=== PATIENT | female | born 1955 | race Caucasian/White ===

== ENCOUNTER 2017-12-18 10:20 | Observation (INO) ==
--- NOTE | 2017-12-18 10:45 | Emergency Department Note ---
Disposition Clinical Impression: Hypokalemia, Hyperthyroidism Disposition: Admitted As Inpatient Condition: Fair General Adult HPI - General Chief complaint: ED Neuro Symptoms/Deficit Stated complaint: Left arm tingling Time Seen by Provider: 12/18/17 10:28 Source: patient Nursing Notes Reviewed: Yes Vital Signs Reviewed: Yes - History of Present Illness HPI Narrative: 62-year-old female presents to the emergency department after 2 day history of numbness and tingling in the left arm. Patient diagnosed with hyperthyroidism one year ago. Patient has not been taking any beta blockers or PTU. Patient takes lisinopril hydrochlorothiazide occasionally for hypertension. Patient denies any slurred speech, fevers, but does report some chest pain over the last couple days. Pain Scale: 6 - Related Data Home Medications Medication Instructions Recorded Confirmed Lisinopril-HCTZ 10-12.5 [Prinzide 1 each PO DAILY 12/18/17 12/18/17 10-12.5] Naproxen Sodium [Aleve] 220 mg PO DAILY 12/18/17 12/18/17 Allergies Allergy/AdvReac Type Severity Reaction Status Date / Time No Known Allergies Allergy Verified 08/17/16 11:12 All systems ED: reviewed and negative except as stated. Review of Systems: As Per HPI Constitutional: Denies: fever Cardiovascular: Reports: chest pain, palpitations Respiratory: Denies: cough, dyspnea Gastrointestinal: Denies: abdominal pain, nausea, vomiting Genitourinary: Denies: urgency, dysuria, frequency Musculoskeletal: Reports: back pain Neurological: Reports: numbness, paresthesias Psychiatric: Reports: anxiety Past Medical History - Past Medical History Medical history: Reports: hypertension Psychiatric history: Reports: anxiety, depression - Social History Smoking Status: Current every day smoker Smokeless Tobacco Status: No Alcohol use: Reports: none Drug use: Reports: none Physical Exam - General General appearance: alert, in no apparent distress, other (Thin-appearing 62- year-old female) - Head Head exam: atraumatic, normocephalic - Eye Eye exam: Present: EOMI. Absent: scleral icterus, conjunctival injection - ENT ENT exam: normal oropharynx, mucous membranes moist - Neck Neck exam: Present: trachea midline. Absent: tenderness - Chest Chest inspection: Present: normal inspection, symmetric chest wall rise - Respiratory Respiratory exam: Present: normal lung sounds bilaterally. Absent: respiratory distress, accessory muscle use - Cardiovascular Cardiovascular exam: Present: regular rate, normal rhythm, normal heart sounds - Abdominal Exam Abdominal exam: Present: soft, Non-Tender. Absent: distention, guarding, rebound - Back Exam Back exam: Present: normal inspection, full ROM. Absent: CVA tenderness (R), CVA tenderness (L) - Neurological Exam Neurological exam: Present: alert, oriented X3, CN II-XII intact - Psychiatric Psychiatric exam: Present: normal affect, normal mood - Skin Skin exam: Present: warm, dry, intact Course Vital Signs Temperature 97.8 F 12/18/17 10:25 Pulse Rate 75 12/18/17 10:25 Respiratory Rate 16 12/18/17 10:25 Blood Pressure 183/100 12/18/17 10:25 O2 Sat by Pulse Oximetry 99 12/18/17 10:25 Temperature 98.0 F 12/18/17 18:43 Pulse Rate 63 12/18/17 18:43 Respiratory Rate 14 12/18/17 18:43 Blood Pressure 168/98 12/18/17 18:43 O2 Sat by Pulse Oximetry 98 12/18/17 18:43 Oxygen Delivery Oxygen Delivery Room Air Medical Decision Making - MDM Narrative Medical decision making narrative: 8-year-old female presents emergency Department with numbness and tingling in the left upper extremity in the setting of history of hyperthyroidism. At this time, we will obtain a head CT. It did not reveal any evidence of intracranial abnormality. (Stroke, being that the symptoms of been there for 48 hours, should have seen some ischemia. Chest x-ray did not reveal any acute cardiopulmonary process. EKG was normal. Troponin was negative. Patient was severely hypokalemic with a potassium of 2.5. Patient was given 40 mg of potassium IV as well as 40 mg of potassium orally. TSH is 0.321 here which is low. Patient admitted to the hospitalist for further evaluation of her hyperthyroidism as well as hypokalemia. We did obtain a magnesium which was within normal limits. Discussed the plan with patient at bedside and she agreed with admission. Patient hemodynamically stable and not in any acute distress at time of admission. We held off on administering any beta blockers or PTU as patient was not clinically in thyroid storm. Chest X-Ray 12/18/17 10:41 IMPRESSION: No acute cardiopulmonary process identified. D/ / Jim Dudley MD / Jim Dudley MD Interpreting Provider: Jim Dudley MD Head CT 12/18/17 11:02 IMPRESSION: Stable appearance of the brain with no acute intracranial abnormality. D/ / Aiden Dewitt MD / Aiden Dewitt MD Interpreting Provider: Aiden Dewitt MD Vital Signs Temperature 97.8 F 12/18/17 10:25 Pulse Rate 75 12/18/17 10:25 Respiratory Rate 16 12/18/17 10:25 Blood Pressure 183/100 12/18/17 10:25 O2 Sat by Pulse Oximetry 99 12/18/17 10:25 Temperature 98.0 F 12/18/17 18:43 Pulse Rate 63 12/18/17 18:43 Respiratory Rate 14 12/18/17 18:43 Blood Pressure 168/98 12/18/17 18:43 O2 Sat by Pulse Oximetry 98 12/18/17 18:43 Oxygen Delivery Oxygen Delivery Room Air - Lab Data Result diagrams: 12/18/17 16:23 12/18/17 16:23 Lab Results 12/18/17 12/18/17 12/18/17 Range/Units 10:58 10:58 10:58 WBC 9.4 (4.3-11.1) K/mcL RBC 4.62 (3.82-4.97) M/mcL Hgb 13.5 (11.5-15.4) g/dL Hct 38.8 (35.3-44.9) % MCV 84.0 (83.0-100.0) fL MCH 29.2 (28.0-33.3) pg MCHC 34.8 (31.6-35.5) g/dL RDW 12.7 (11.5-14.5) % Plt Count 293 (140-400) K/mcL MPV 9.2 L (9.4-12.4) fL Immature Gran % 0.0 (0-4) % Seg Neutrophils % 57.1 % Lymphocytes % 37.3 % Monocytes % 4.6 % Eosinophils % 0.4 % Basophils % 0.6 % Neutrophils # 5.4 (1.6-8.9) K/mcL Lymphocytes # 3.5 (0.6-4.6) K/mcL Monocytes # 0.4 (0.0-1.3) K/mcL Eosinophils # 0.0 (0.0-0.6) K/mcL Basophils # 0.1 (0.0-0.2) K/mcL D-Dimer < 215 (0-500) ng/mLFEU Sodium 140 (136-145) mEq/L Potassium 2.5 L* (3.5-5.1) mEq/L Chloride 106 (98-107) mEq/L Carbon Dioxide 27 (23-29) mEq/L BUN 21 (8-23) mg/dL Creatinine 0.85 (0.60-1.20) mg/dL Est GFR ( Amer) > 60 (> 60) Est GFR (Non-Af Amer) > 60 (> 60) BUN/Creatinine Ratio 25 (6-26) Glucose 116 H (70-105) mg/dL Calculated Osmolality 294 (280-300) Calcium 9.4 (8.6-10.3) mg/dL Magnesium 2.0 (1.6-2.6) mg/dL Troponin I < 0.03 (< 0.04) ng/mL B-Natriuretic Peptide (Less than 100) pg/mL TSH 0.281 L (0.340-5.600) mcIU/mL Urine Color (Yellow) Urine Clarity (Clear) Urine pH (5.0-8.0) pH Units Ur Specific [place] (1.010-1.025) Urine Protein (Neg-Trace) mg/dL Urine Glucose (UA) (Normal) mg/dL Urine Ketones (Negative) mg/dL Urine Blood (Negative) Urine Nitrite (Negative) Urine Bilirubin (Negative) Urine Urobilinogen (Normal) mg/dL Ur Leukocyte Esterase (Negative) Ur Culture Indicated? (NO) 12/18/17 12/18/17 Range/Units 10:58 11:17 WBC (4.3-11.1) K/mcL RBC (3.82-4.97) M/mcL Hgb (11.5-15.4) g/dL Hct (35.3-44.9) % MCV (83.0-100.0) fL MCH (28.0-33.3) pg MCHC (31.6-35.5) g/dL RDW (11.5-14.5) % Plt Count (140-400) K/mcL MPV (9.4-12.4) fL Immature Gran % (0-4) % Seg Neutrophils % % Lymphocytes % % Monocytes % % Eosinophils % % Basophils % % Neutrophils # (1.6-8.9) K/mcL Lymphocytes # (0.6-4.6) K/mcL Monocytes # (0.0-1.3) K/mcL Eosinophils # (0.0-0.6) K/mcL Basophils # (0.0-0.2) K/mcL D-Dimer (0-500) ng/mLFEU Sodium (136-145) mEq/L Potassium (3.5-5.1) mEq/L Chloride (98-107) mEq/L Carbon Dioxide (23-29) mEq/L BUN (8-23) mg/dL Creatinine (0.60-1.20) mg/dL Est GFR ( Amer) (> 60) Est GFR (Non-Af Amer) (> 60) BUN/Creatinine Ratio (6-26) Glucose (70-105) mg/dL Calculated Osmolality (280-300) Calcium (8.6-10.3) mg/dL Magnesium (1.6-2.6) mg/dL Troponin I (< 0.04) ng/mL B-Natriuretic Peptide 24 (Less than 100) pg/mL TSH (0.340-5.600) mcIU/mL Urine Color Yellow (Yellow) Urine Clarity Clear (Clear) Urine pH 6.5 (5.0-8.0) pH Units Ur Specific [place] 1.020 (1.010-1.025) Urine Protein Negative (Neg-Trace) mg/dL Urine Glucose (UA) Normal (Normal) mg/dL Urine Ketones Negative (Negative) mg/dL Urine Blood Negative (Negative) Urine Nitrite Negative (Negative) Urine Bilirubin Negative (Negative) Urine Urobilinogen Normal (Normal) mg/dL Ur Leukocyte Esterase Negative (Negative) Ur Culture Indicated? NO (NO) Attestation Statement - Attestation Attestation: I, Brandon Bardales DO, examined this patient [id number] and my medical decision-making was reviewed with Dr. Dangelo Johnson, Resident Physician. I agree with the documented findings, disposition and treatment plan as described except to the extent set forth below. Please see my progress notes for details.
[2017-12-18 11:18] LABS: Basophils # 0.1 K/mcL (0.0-0.2); Basophils % 0.6 %; Eosinophils % 0.4 %; Hematocrit 38.8 % (35.3-44.9); Hemoglobin 13.5 g/dL (11.5-15.4); Lymphocytes # 3.5 K/mcL (0.6-4.6); Lymphocytes % 37.3 %; Mean Corpuscular HGB Conc 34.8 g/dL (31.6-35.5); Mean Corpuscular Hemoglobin 29.2 pg (28.0-33.3); Mean Platelet Volume 9.2 fL (9.4-12.4); Monocytes # 0.4 K/mcL (0.0-1.3); Monocytes % 4.6 %; Neutrophils # 5.4 K/mcL (1.6-8.9); Platelet Count 293 K/mcL (140-400); Red Blood Count 4.62 M/mcL (3.82-4.97); Red Cell Distribution Width 12.7 % (11.5-14.5); Segmented Neutrophils % 57.1 %
[2017-12-18 11:40] LABS: Bilirubin,Urine Negative (Negative); Blood,Urine Negative (Negative); Clarity,Urine Clear (Clear); Color,Urine Yellow (Yellow); Glucose,Urine (UA) Normal (Normal); Ketones,Urine Negative (Negative); Leukocyte Esterase,Urine Negative (Negative); Nitrite,Urine Negative (Negative); PH,Urine 6.5 pH Units (5.0-8.0); Protein,Urine Negative (Neg-Trace); Urobilinogen,Urine Normal (Normal)
[2017-12-18 11:48] LABS: Troponin I < 0.03 ng/mL (< 0.04)
[2017-12-18 11:50] LABS: BUN/Creatinine Ratio 25 (6-26); Blood Urea Nitrogen 21 mg/dL (8-23); Calcium 9.4 mg/dL (8.6-10.3); Carbon Dioxide 27 mEq/L (23-29); Chloride 106 mEq/L (98-107); Glucose 116 mg/dL (70-105); Osmolality,Calculated 294 (280-300); Potassium 2.5 mEq/L (3.5-5.1); Sodium 140 mEq/L (136-145); Thyroid Stimulating Hormone 0.281 mcIU/mL (0.340-5.600); eGFR For African Americans > 60 (> 60); eGFR For Non-African Americans > 60 (> 60)
--- NOTE | 2017-12-18 12:14 | Emergency Department Note ---
Disposition Clinical Impression: Hypokalemia, Hyperthyroidism Disposition: Admitted As Inpatient Condition: Fair Time of Disposition: 17:53 General Adult HPI - General Chief complaint: ED Neuro Symptoms/Deficit Stated complaint: Left arm tingling Time Seen by Provider: 12/18/17 10:28 Source: patient - History of Present Illness Pain Scale: 6 - Related Data Home Medications Medication Instructions Recorded Confirmed Lisinopril-HCTZ 10-12.5 [Prinzide 1 each PO DAILY 12/18/17 12/18/17 10-12.5] Naproxen Sodium [Aleve] 220 mg PO DAILY 12/18/17 12/18/17 Allergies Allergy/AdvReac Type Severity Reaction Status Date / Time No Known Allergies Allergy Verified 08/17/16 11:12 Past Medical History - Past Medical History Medical history: Reports: hypertension Psychiatric history: Reports: anxiety, depression - Social History Smoking Status: Current every day smoker Smokeless Tobacco Status: No Alcohol use: Reports: none Drug use: Reports: none Physical Exam - General General appearance: alert, in no apparent distress Course Vital Signs Temperature 97.8 F 12/18/17 10:25 Pulse Rate 75 12/18/17 10:25 Respiratory Rate 16 12/18/17 10:25 Blood Pressure 183/100 12/18/17 10:25 O2 Sat by Pulse Oximetry 99 12/18/17 10:25 Temperature 98.2 F 12/18/17 14:26 Pulse Rate 56 12/18/17 14:26 Respiratory Rate 15 12/18/17 14:26 Blood Pressure 131/85 12/18/17 14:26 O2 Sat by Pulse Oximetry 97 12/18/17 14:26 Oxygen Delivery Oxygen Delivery Room Air Medical Decision Making - Lab Data Result diagrams: 12/18/17 16:23 12/18/17 10:58 Lab Results 12/18/17 12/18/17 12/18/17 Range/Units 10:58 10:58 10:58 WBC 9.4 (4.3-11.1) K/mcL RBC 4.62 (3.82-4.97) M/mcL Hgb 13.5 (11.5-15.4) g/dL Hct 38.8 (35.3-44.9) % MCV 84.0 (83.0-100.0) fL MCH 29.2 (28.0-33.3) pg MCHC 34.8 (31.6-35.5) g/dL RDW 12.7 (11.5-14.5) % Plt Count 293 (140-400) K/mcL MPV 9.2 L (9.4-12.4) fL Immature Gran % 0.0 (0-4) % Seg Neutrophils % 57.1 % Lymphocytes % 37.3 % Monocytes % 4.6 % Eosinophils % 0.4 % Basophils % 0.6 % Neutrophils # 5.4 (1.6-8.9) K/mcL Lymphocytes # 3.5 (0.6-4.6) K/mcL Monocytes # 0.4 (0.0-1.3) K/mcL Eosinophils # 0.0 (0.0-0.6) K/mcL Basophils # 0.1 (0.0-0.2) K/mcL D-Dimer < 215 (0-500) ng/mLFEU Sodium 140 (136-145) mEq/L Potassium 2.5 L* (3.5-5.1) mEq/L Chloride 106 (98-107) mEq/L Carbon Dioxide 27 (23-29) mEq/L BUN 21 (8-23) mg/dL Creatinine 0.85 (0.60-1.20) mg/dL Est GFR ( Amer) > 60 (> 60) Est GFR (Non-Af Amer) > 60 (> 60) BUN/Creatinine Ratio 25 (6-26) Glucose 116 H (70-105) mg/dL Calculated Osmolality 294 (280-300) Calcium 9.4 (8.6-10.3) mg/dL Magnesium 2.0 (1.6-2.6) mg/dL Troponin I < 0.03 (< 0.04) ng/mL B-Natriuretic Peptide (Less than 100) pg/mL TSH 0.281 L (0.340-5.600) mcIU/mL Urine Color (Yellow) Urine Clarity (Clear) Urine pH (5.0-8.0) pH Units Ur Specific [place] (1.010-1.025) Urine Protein (Neg-Trace) mg/dL Urine Glucose (UA) (Normal) mg/dL Urine Ketones (Negative) mg/dL Urine Blood (Negative) Urine Nitrite (Negative) Urine Bilirubin (Negative) Urine Urobilinogen (Normal) mg/dL Ur Leukocyte Esterase (Negative) Ur Culture Indicated? (NO) 12/18/17 12/18/17 Range/Units 10:58 11:17 WBC (4.3-11.1) K/mcL RBC (3.82-4.97) M/mcL Hgb (11.5-15.4) g/dL Hct (35.3-44.9) % MCV (83.0-100.0) fL MCH (28.0-33.3) pg MCHC (31.6-35.5) g/dL RDW (11.5-14.5) % Plt Count (140-400) K/mcL MPV (9.4-12.4) fL Immature Gran % (0-4) % Seg Neutrophils % % Lymphocytes % % Monocytes % % Eosinophils % % Basophils % % Neutrophils # (1.6-8.9) K/mcL Lymphocytes # (0.6-4.6) K/mcL Monocytes # (0.0-1.3) K/mcL Eosinophils # (0.0-0.6) K/mcL Basophils # (0.0-0.2) K/mcL D-Dimer (0-500) ng/mLFEU Sodium (136-145) mEq/L Potassium (3.5-5.1) mEq/L Chloride (98-107) mEq/L Carbon Dioxide (23-29) mEq/L BUN (8-23) mg/dL Creatinine (0.60-1.20) mg/dL Est GFR ( Amer) (> 60) Est GFR (Non-Af Amer) (> 60) BUN/Creatinine Ratio (6-26) Glucose (70-105) mg/dL Calculated Osmolality (280-300) Calcium (8.6-10.3) mg/dL Magnesium (1.6-2.6) mg/dL Troponin I (< 0.04) ng/mL B-Natriuretic Peptide 24 (Less than 100) pg/mL TSH (0.340-5.600) mcIU/mL Urine Color Yellow (Yellow) Urine Clarity Clear (Clear) Urine pH 6.5 (5.0-8.0) pH Units Ur Specific [place] 1.020 (1.010-1.025) Urine Protein Negative (Neg-Trace) mg/dL Urine Glucose (UA) Normal (Normal) mg/dL Urine Ketones Negative (Negative) mg/dL Urine Blood Negative (Negative) Urine Nitrite Negative (Negative) Urine Bilirubin Negative (Negative) Urine Urobilinogen Normal (Normal) mg/dL Ur Leukocyte Esterase Negative (Negative) Ur Culture Indicated? NO (NO) Attestation Statement - Attestation Attestation: I, Brandon Bardales DO, examined this patient [id number] and my medical decision-making was reviewed with Dr. Dangelo Johnson, Resident Physician. I agree with the documented findings, disposition and treatment plan as described except to the extent set forth below. Please see my progress notes for details. 62-year-old female presents to the emergency room with complaint of palpitations , intermittent chest tightness, flushing feeling, headache, left arm tingliness it has been going on for 2 days. Patient has had this happen multiple times in the past. Patient says that she has been under a great deal of stress considering her son had fallen several times it is chronically disabled. Patient does have a history of thyroid related diseases required medications to help with symptomatic control. Vital signs on presentation were stable. Patient is alert she is oriented she speaks in full sentences. She is thin. Head is atraumatic pupils are equal round reactive extraocular muscles are intact. Oropharynx is patent trachea is midline. There is no signs of stridor or trismus. No meningeal symptoms are noted at this time. Lungs are clear to auscultation bilaterally in all 4 holder. Heart is regular. Abdomen is soft nontender nondistended no guarding no rigidity and no peritoneal symptoms. Patient moves all 4 of her extremities with no signs of ataxia or abnormality. A full neurologic evaluation was completed showing no acute signs of cerebellar dysfunction or issue. NIH stroke scale is 0. Patient does have some slight subjective weakness and flexion of the left arm at the elbow. There is no other signs of neurologic deficit or issue. Nerve sensation appears to be intact in the upper and lower extremities. Patient has been able to elicit emergency room without any issue. Patient will have CT imaging of the head chest x-ray EKG labs including CBC chemistry troponin and thyroid function along with urinalysis. Disposition pending this workup and treatment course. Unknown etiology at this point to the patient's palpitations and tingliness. No acute stroke symptoms are noted this time and the symptoms have been present for greater than 48 hours. Disposition pending the full workup and evaluation. See detailed documentation of the physical exam, medical intervention, medical decision-making and disposition the resident physician's note. No critical care provider the patient's treatment course at this time. 1200 Patient is found to have a potassium of 2.5. IV infusion of 40 mEq of potassium will be given. Magnesium will be tested. 40 mEq of oral potassium will be given as well. Disposition pending the full treatment course and evaluation. Discusses with the patient and advise for possible admission. Patient is hyperthyroid but her TSH is just below the normal limits. Patient is otherwise asymptomatic with negative CT scan of the head as well as normal chest x-ray and EKG. Patient is otherwise stable. Hospitalist was contacted and they are comfortable with the admission of this time. We will continue to manage the patient's presentation symptoms in the hospital setting. No other acute issues at this time no other recommendations.
--- NOTE | 2017-12-18 15:38 | Internal Med History&Physical ---
Date of Encounter: 12/18/17 Time of Encounter: 15:39 Internal Medicine - H&P: HPI Chief complaint: hypokalemia History of present illness: 62-year-old female status post medical history of hypertension and hyperthyroidism presents to the emergency room with complaint of palpitations, intermittent chest tightness, flushing feeling, headache, left arm tingliness. The patient does not follow with a primary care physician not on medication for hypothyroidism, she has a prescription for lisinopril /chlorothiazide combination that she only take when her blood pressure is high. Patient is found to have a potassium of 2.5. and low TSH, IV infusion of 40 mEq of potassium was given. Magnesium, T4 , T3 are pending. Past Med Surg Social Fam HX - Past Medical History Medical history: hypertension Psychiatric history: anxiety, depression - Social History Smoking Status: Current every day smoker Packs per day: 1 Smokeless Tobacco Status: No Alcohol use: none Drug use: none - Family History Father Age: 30 Living Status: Hx Family Cardiac Disorders: Yes ([place]) Mother Age: 60 Hx Family GI Disorders: Yes (colon cancer) Internal Medicine - H&P: Meds Lisinopril-HCTZ 10-12.5 [Prinzide 10-12.5] 1 each PO DAILY 12/18/17 [History] Naproxen Sodium [Aleve] 220 mg PO DAILY 12/18/17 [History] Propranolol [Inderal] 10 mg PO BID #60 tablet 12/21/17 [Rx] hydrOXYzine pamoate [HydrOXYzine Pamoate] 25 mg PO BID PRN #10 capsule 12/21/17 [Rx] 3 Allergy/AdvReac Type Severity Reaction Status Date / Time No Known Allergies Allergy Verified 08/17/16 11:12 All Systems PM: A 10-system review of systems was performed and is negative for pertinent findings except as documented above in the HPI. - Constitutional Constitutional: fatigue, lethargy, weakness, no chills, no fever(s), no night sweats - EENT Nose, mouth and throat: no dysphagia, no nasal discharge, no neck pain, no sore throat - Cardiovascular Cardiovascular ROS IM: palpitations, no chest pain, no diaphoresis, no dyspnea, no lightheadedness, no syncope - Respiratory Respiratory: no cough, no dyspnea, no wheezing, no excessive phlegm production - Gastrointestinal Gastrointestinal: no abdominal pain, no diarrhea, no hematemesis, no hematochezia, no melena, no nausea, no vomiting - Neurological Neurological ROS: numbness, paresthesias, tingling, weakness, no confusion, no convulsions, no focal weakness, no tremor(s) - Constitutional Vitals: Temp Pulse Resp BP Pulse Ox 98.2 F 56 15 131/85 97 12/18/17 14:12/18/17 14:12/18/17 14:12/18/17 14:12/18/17 14:26 Internal Med - H&P Results - Labs CBC & Chem 7: 12/20/17 05:12/21/17 09:43 - Assessment and plan (1) Hypokalemia Status: Resolved Assessment and plan: rule out thyrotoxic periodic paralysis, given the history of hypothyroidism , we will also obtain T3 and T4, potassium was replaced, we will repeat potassium level, obtain urine electrolytes, I would be cautious with potassium replacement to avoid hyperkalemia given that in cases of thyrotoxic periodic paralysis, the total but the potassium content is normal and the hypokalemia most likely secondary to potassium shift consult nephrology for further evaluation (2) Hyperthyroidism Status: Acute Assessment and plan: unfortunately the patient is not on any treatment for hyperthyroidism, we will obtain TSH T3-T4, patient heart rate on the low side so we will be holding on starting beta celine for now, (3) Hypertension Status: Chronic Assessment and plan: the patient is in compliant with med, she only take the combination of lisinopril and hydrochlorothiazide when her blood pressure is high. We will resume home medication. The patient was educated on the importance of compliance with antihypertensive meds. Qualifiers: Hypertension type: essential hypertension Qualified Code(s): I10 - Essential (primary) hypertension - Time Spent With Patient Total time spent is greater than 50% in coordination of care (as documented) at patient's floor/unit and/or counseling patient:
[2017-12-18 16:35] LABS: Basophils # 0.1 K/mcL (0.0-0.2); Basophils % 0.7 %; Eosinophils # 0.1 K/mcL (0.0-0.6); Eosinophils % 0.6 %; Hematocrit 39.6 % (35.3-44.9); Hemoglobin 14.3 g/dL (11.5-15.4); Immature Granulocytes % 0.2 % (0-4); Lymphocytes # 3.6 K/mcL (0.6-4.6); Mean Corpuscular HGB Conc 36.1 g/dL (31.6-35.5); Mean Corpuscular Hemoglobin 30.6 pg (28.0-33.3); Mean Corpuscular Volume 84.8 fL (83.0-100.0); Mean Platelet Volume 9.2 fL (9.4-12.4); Monocytes # 0.4 K/mcL (0.0-1.3); Neutrophils # 4.3 K/mcL (1.6-8.9); Platelet Count 280 K/mcL (140-400); Red Blood Count 4.67 M/mcL (3.82-4.97); Red Cell Distribution Width 12.5 % (11.5-14.5); Segmented Neutrophils % 50.5 %
[2017-12-18 16:53] LABS: Magnesium 1.9 mg/dL (1.6-2.6); Phosphorous 1.9 mg/dL (2.7-4.5)
[2017-12-18] MEDS ORDERED: Naloxone 0.4 MG/ML INJ IVP PRN (16:56)
[2017-12-18 17:27] LABS: Thyroid Stimulating Hormone 0.321 mcIU/mL (0.340-5.600); Troponin I < 0.03 ng/mL (< 0.04)
[2017-12-18 17:29] LABS: Triiodothyronine (T3) Free 3.23 pg/mL (2.50-3.90)
[2017-12-18 17:34] LABS: Triiodothyronine (T3) Total 1.03 ng/mL (0.87-1.78)
[2017-12-18 17:55] LABS: Bilirubin,Urine Negative (Negative); Blood,Urine Negative (Negative); Clarity,Urine Clear (Clear); Color,Urine Yellow (Yellow); Glucose,Urine (UA) Normal (Normal); Ketones,Urine Negative (Negative); Leukocyte Esterase,Urine Negative (Negative); Nitrite,Urine Negative (Negative); PH,Urine 7.5 pH Units (5.0-8.0); Protein,Urine Negative (Neg-Trace); Urobilinogen,Urine Normal (Normal)
[2017-12-18] MEDS: 0.9 % Sodium Chloride 1,000 ML IVC SCH (18:04)
[2017-12-18 18:08] LABS: Potassium 3.4 mEq/L (3.5-5.1)
[2017-12-19] MEDS: 0.9 % Sodium Chloride 1,000 ML IVC SCH (02:00)
[2017-12-19 05:28] LABS: Basophils # 0.1 K/mcL (0.0-0.2); Basophils % 0.8 %; Eosinophils # 0.1 K/mcL (0.0-0.6); Eosinophils % 1.8 %; Hematocrit 35.6 % (35.3-44.9); Immature Granulocytes % 0.1 % (0-4); Lymphocytes # 3.6 K/mcL (0.6-4.6); Lymphocytes % 49.9 %; Mean Corpuscular HGB Conc 34.8 g/dL (31.6-35.5); Mean Corpuscular Hemoglobin 29.3 pg (28.0-33.3); Mean Corpuscular Volume 84.2 fL (83.0-100.0); Mean Platelet Volume 9.3 fL (9.4-12.4); Monocytes # 0.5 K/mcL (0.0-1.3); Monocytes % 6.4 %; Platelet Count 236 K/mcL (140-400); Red Blood Count 4.23 M/mcL (3.82-4.97); Red Cell Distribution Width 12.5 % (11.5-14.5)
[2017-12-19 05:30] LABS: Hemoglobin 12.4 g/dL (11.5-15.4)
[2017-12-19 05:48] LABS: Alanine Aminotransferase 10 Units/L (7-52); Albumin 3.5 g/dL (3.5-5.7); Albumin/Globulin Ratio 1.3 (1.1-2.2); Alkaline Phosphatase 56 Units/L (34-104); Aspartate Amino Transferase 11 Units/L (13-39); BUN/Creatinine Ratio 17 (6-26); Bilirubin,Total 0.3 mg/dL (0.3-1.0); Blood Urea Nitrogen 12 mg/dL (8-23); Calcium 8.7 mg/dL (8.6-10.3); Carbon Dioxide 24 mEq/L (23-29); Chloride 114 mEq/L (98-107); Chol/HDL Ratio 4.9 (0-4.9); Cholesterol 127 mg/dL (< 200); Globulin 2.6 g/dL (2.4-3.5); Glucose 89 mg/dL (70-105); HDL Cholesterol 26 mg/dL (40-59); LDL Cholesterol,Calculated 71 mg/dL (0-99); Magnesium 1.8 mg/dL (1.6-2.6); Osmolality,Calculated 293 (280-300); Phosphorous 1.9 mg/dL (2.7-4.5); Potassium 3.5 mEq/L (3.5-5.1); Sodium 142 mEq/L (136-145); Total Protein 6.1 g/dL (6.4-8.9); Triglycerides 149 mg/dL (< 150); eGFR For African Americans > 60 (> 60); eGFR For Non-African Americans > 60 (> 60)
[2017-12-19 06:00] LABS: INR 1.2
--- NOTE | 2017-12-19 09:36 | Electrocardiograph Report ---
[facility] Test Date: 2017-12-18 Pat Name: Kasia Urias Department: 103 Room: 3B48 Gender: F [employer]: : 1955 Requested By: Dangelo Johnson Order Number: [id number] Reading MD: Jeyson Arevalo Measurements Intervals [place] Rate: 72 P: 59 [place]: 130 QRS: 25 QRSD: 86 T: 25 QT: 409 QTc: 434 Interpretive Statements SINUS RHYTHM Electronically Signed On 12-19-2017 7:17:30 EDT by Jeyson Arevalo
--- NOTE | 2017-12-19 09:57 | Event Note ---
Date of Encounter: 12/19/17 Time of Encounter: 09:55 Nephrology was consulted for hypokalemia but K+ is now WNL. No need for our services at this time. Please re-consult if needed. Thank you.
--- NOTE | 2017-12-19 19:03 | Internal Med Progress Note ---
Date of Encounter: 12/19/17 Time of Encounter: 11:25 - Assessment and plan (1) Hypokalemia Current Visit: Yes Status: Acute Assessment and plan: Patient was admitted, rule out thyrotoxic periodic paralysis. TSH was only mildly decreased at 0.321, free T4 and free T3 and total T3 were all within normal limits. Potassium has been replaced and is within normal limits. Nephrology has been consulted, did not see patient today. I appreciate their consultation and recommendation. 12/18/17-rule out thyrotoxic periodic paralysis, given the history of hypothyroidism , we will also obtain T3 and T4, potassium was replaced, we will repeat potassium level, obtain urine electrolytes, I would be cautious with potassium replacement to avoid hyperkalemia given that in cases of thyrotoxic periodic paralysis, the total but the potassium content is normal and the hypokalemia most likely secondary to potassium shift consult nephrology for further evaluation (2) Hyperthyroidism Current Visit: Yes Status: Acute Assessment and plan: Patient denies any treatment for hyperthyroidism. TSH is only mildly decreased at 0.321, free T4 free T3 total T3 and T4 all within normal limits. Pt pulse was in the 60s and has elevated into the 90s, as well as having HTN, will add BB. 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 (3) Hypertension Current Visit: Yes Status: Acute Assessment and plan: Pt takes Prinzide at home, has been continued. Will add BB for tachycardia and HTN, likely due to hyperthyroidism. Metoprolol 12.5mg po BID Monitor vitals closely. Qualifiers: Hypertension type: essential hypertension Qualified Code(s): I10 - Essential (primary) hypertension (4) Dysphagia Current Visit: Yes Status: Acute Assessment and plan: Patient reports that she is having difficulty swallowing today. She states that things are stuck in her throat, as well as in her upper chest. Patient reports history of same proximately one year ago, states that she had difficulty with her thyroid at that time, reports that nothing was done. Thyroid ultrasound completed, bilateral thyroid nodules noted. Dominant nodule on the right thyroid lobe approximately 2.4 cm needs criteria for fine-needle aspiration, this is recommended. Other nodules are amenable to continued follow -up and measure less than 1 cm in size. We will order aspiration of thyroid nodule by IR. Unsure of specific order in [employer], will call in the a.m. Swallowing evaluation is ordered. Qualifiers: Dysphagia type: unspecified Qualified Code(s): R13.10 - Dysphagia, unspecified (5) Thyroid nodule Current Visit: Yes Status: Acute Assessment and plan: Per thyroid ultrasound. Plan as above. - Time Spent With Patient Total time spent is greater than 50% in coordination of care (as documented) at patient's floor/unit and/or counseling patient: less than 15 minutes - Subjective Interval history: Patient was seen and assessed the bedside 11:25 AM. Male visitor was at bedside. All questions were answered. Patient reports that she is having difficulty swallowing since last night. She reports that she feels that food is stuck in her throat and chest. She staets that she has stopped all of her medications and feels that she needs to have something for anxiety and for sleep tonight. She denies headache, n/v, diarrhea, abdominal pain, peripheral edema, chest pain or SOB. - Constitutional Vitals: Temp Pulse Resp BP Pulse Ox 98.1 F 93 18 171/92 93 12/19/17 18:00 12/19/17 18:00 12/19/17 18:00 12/19/17 18:00 12/19/17 15:59 General appearance: Present: cooperative, A&O X 3, pleasant, no acute distress, answers questions appropriately - Head Head exam: Present: atraumatic, normal inspection, normocephalic - Eye Eye exam: Present: normal appearance, conjuntiva pink, sclera anicteric - Neck Neck exam general surgery: Present: supple, trachea midline. Absent: lymphadenopathy, tenderness - Respiratory Respiratory exam: Present: CTAB. Absent: accessory muscle use, chest wall tenderness, rales, respiratory distress, rhonchi, wheezes - Cardiovascular Cardiovascular exam: Present: RRR, +S1, +S2. Absent: diastolic murmur, gallop, rubs, systolic murmur - GI/Abdominal GI/Abdominal exam: Present: normal bowel sounds, soft. Absent: distended, hepatomegaly, tenderness - Extremities Exam Extremities exam: Present: normal capillary refill, normal inspection, warm, radial pulses palpable and symmetrical. Absent: calf tenderness, cyanotic, pedal edema - Neurological Exam Neurological exam: Present: alert, oriented X3, no focal deficits. Absent: facial droop, speech deficit - Skin Skin exam: Present: dry, intact, normal color, warm. Absent: rash Internal Medicine: Result - Labs CBC & Chem 7: 12/19/17 04:58 12/19/17 04:58 Labs: Short CBC 12/19/17 Range/Units 04:58 WBC 7.2 (4.3-11.1) K/mcL Hgb 12.4 D (11.5-15.4) g/dL Hct 35.6 (35.3-44.9) % Plt Count 236 (140-400) K/mcL Neutrophils # 3.0 (1.6-8.9) K/mcL BMP 12/19/17 04:58 Sodium 142 Potassium 3.5 Chloride 114 H Carbon Dioxide 24 BUN 12 Creatinine 0.71 Glucose 89 Calcium 8.7 Cardiac Enzymes 12/18/17 12/19/17 Range/Units 22:33 04:58 Troponin I < 0.03 < 0.03 (< 0.04) ng/mL Liver Function 12/19/17 Range/Units 04:58 Total Bilirubin 0.3 (0.3-1.0) mg/dL AST 11 L (13-39) Units/L ALT 10 (7-52) Units/L Alkaline Phosphatase 56 (34-104) Units/L Albumin 3.5 (3.5-5.7) g/dL - ABG Interpretation ABG results: PT/INR, D-dimer PT 13.0 Seconds (9.4-12.1) H 12/19/17 04:58 D-Dimer < 215 ng/mLFEU (0-500) 12/18/17 10:58 - Impressions Impressions Echocardiogram 12/19/17 08:23 Impressions: LVEF 60%. Mild left ventricular diastolic dysfunction. Normal right ventricular structure and function. Mild mitral regurgitation. Mild aortic regurgitation. Mild tricuspid regurgitation. Mild pulmonic regurgitation. Mild pulmonary hypertension. Left Ventricular Wall Motion: Rest Echo Findings All wall segments showed normal motion. Findings: Study Quality * Technically adequate exam. ECG Findings * Normal sinus rhythm. Left Ventricle * LVEF 60%. * Normal LV chamber size, wall thickness and function. * Mild left ventricular diastolic dysfunction. Right Ventricle * Normal right ventricular structure and function. Left Atrium * Normal left atrial size. Right Atrium * Normal right atrial size. Mitral Valve * Normal mitral valve structure. * No mitral stenosis. * Mild mitral regurgitation. Aortic Valve * Trileaflet aortic valve. * No aortic stenosis. * Mild aortic regurgitation. Tricuspid Valve * Mild tricuspid regurgitation. * Normal tricuspid valve structure. * Estimated RA pressure is 8 mmHg. * Estimated RVSP is 39 mmHg. * Mild pulmonary hypertension. Pulmonic Valve * Pulmonic valve is not well visualized. * No pulmonic stenosis. * Mild pulmonic regurgitation. Pulmonary Artery * Pulmonary artery not well visualized. Aorta * Normally sized aortic root. Pericardium * There is no pericardial effusion present. Interatrial Septum * No evidence of PFO by color Doppler. IVC * The IVC is not dilated. * < 50% respiratory change. Thyroid Ultrasound 12/19/17 15:00 IMPRESSION: Bilateral thyroid nodules. Dominant nodule to the right thyroid lobe measuring maximally 2.4 cm meets criteria for fine-needle aspiration and this is recommended. Other nodules are amenable to continued follow-up and measure less than 1 cm in size. D/ / 12/19/2017 18:17:13 Marcelo Miramontes MD / Alejandra Huang Interpreting Provider: Marcelo Miramontes MD - VTE Documentation of Mechanical Device: Graduated compression elastic hosiery Consult Discharge Plan - Plan Referrals: NONE,PCP [Primary Care Provider] -
[2017-12-19] MEDS: hydrOXYzine pamoate 25 MG CAPSULE PO PRN (20:57)
[2017-12-19] MEDS: Melatonin 3 MG TABLET PO SCH (20:57)
[2017-12-20 06:27] LABS: Basophils # 0.1 K/mcL (0.0-0.2); Basophils % 0.7 %; Eosinophils # 0.2 K/mcL (0.0-0.6); Eosinophils % 1.7 %; Hematocrit 40.7 % (35.3-44.9); Immature Granulocytes % 0.3 % (0-4); Lymphocytes # 3.6 K/mcL (0.6-4.6); Lymphocytes % 35.4 %; Mean Corpuscular HGB Conc 35.4 g/dL (31.6-35.5); Mean Corpuscular Hemoglobin 29.5 pg (28.0-33.3); Mean Corpuscular Volume 83.4 fL (83.0-100.0); Mean Platelet Volume 9.6 fL (9.4-12.4); Monocytes # 0.6 K/mcL (0.0-1.3); Monocytes % 6.2 %; Neutrophils # 5.7 K/mcL (1.6-8.9); Platelet Count 264 K/mcL (140-400); Red Blood Count 4.88 M/mcL (3.82-4.97); Red Cell Distribution Width 12.3 % (11.5-14.5); Segmented Neutrophils % 55.7 %
[2017-12-20 06:33] LABS: Hemoglobin 14.4 g/dL (11.5-15.4)
[2017-12-20 06:47] LABS: BUN/Creatinine Ratio 14 (6-26); Blood Urea Nitrogen 11 mg/dL (8-23); Calcium 9.9 mg/dL (8.6-10.3); Carbon Dioxide 28 mEq/L (23-29); Chloride 104 mEq/L (98-107); Glucose 102 mg/dL (70-105); Osmolality,Calculated 288 (280-300); Potassium 2.8 mEq/L (3.5-5.1); Sodium 139 mEq/L (136-145); eGFR For African Americans > 60 (> 60); eGFR For Non-African Americans > 60 (> 60)
--- NOTE | 2017-12-20 15:10 | Internal Med Progress Note ---
Date of Encounter: 12/20/17 Time of Encounter: 13:00 - Assessment and plan (1) Hypokalemia Current Visit: Yes Status: Acute Assessment and plan: K+ 2.8 today, will replete with K rider 40meq, KCl 40meq po x 1, and KCl exliir 20meq po hs. Pt is not having any fluid losses, medications have been reviewed. Will draw BMP in the a.m. to reassess, pt will discharge if stable. (2) Hyperthyroidism Current Visit: Yes Status: Acute Assessment and plan: TSH only mildly decreased, free T4, free T3, total T3, total T4 all within normal limits. Perhaps subclinical hyperthyroidism. Metoprolol stopped, Propranolol started today due to decrease in pulse from 90s to 60s. 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 (3) Hypertension Current Visit: Yes Status: Acute Assessment and plan: Pt takes Prinzide at home, has been continued. Will add BB for tachycardia and HTN, likely due to hyperthyroidism. Metoprolol 12.5mg po BID Monitor vitals closely. Qualifiers: Hypertension type: essential hypertension Qualified Code(s): I10 - Essential (primary) hypertension (4) Dysphagia Current Visit: Yes Status: Acute Assessment and plan: Pt appears to be eating and drinking without difficulty and states that symptoms have resolved. Pt was evaluated by speech therapy and found to have no swallowing difficulties and should continue with regular textures and thin liquids. Per radiologist, pt should have biopsy outpatient. Will arrange for pt to establish with PCP and referral to endocrinology outpatient. Qualifiers: Dysphagia type: unspecified Qualified Code(s): R13.10 - Dysphagia, unspecified (5) Thyroid nodule Current Visit: Yes Status: Acute Assessment and plan: Plan as above. (6) Anxiety Current Visit: Yes Status: Chronic Assessment and plan: Pt states that she has a lot of stress in her life. Reports that she is not sleeping well and that she feels "anxious and panicky." She staets that she used to take Tranzene years ago, was transitioned to Ativan , which she abruptly stopped about 20 years ago and has not been on anything since. She denies relief from hydroxyzine and I explained to her that I could not give her any Ativan or Xanax due to her lack of PCP and proper follow up after discharge. As above, will try to get pt appointment to establish with PCP prior to discharge. - Time Spent With Patient Total time spent is greater than 50% in coordination of care (as documented) at patient's floor/unit and/or counseling patient: less than 15 minutes - Subjective Interval history: Patient was seen and assessed the bedside 1300 PM. Male visitor was at bedside again today. All questions were answered. Pt states that she feels like she is anxious and panicky and that the Melatonin did not really help her sleep last night. She denies headache, n/v, diarrhea, abdominal pain, peripheral edema, chest pain or SOB. Pt and I discussed that she will need to follow up with her PCP and she states that she does not have one, will attempt to find her new PCP prior to discharge. - Constitutional Vitals: Temp Pulse Resp BP Pulse Ox 98.2 F 71 18 143/85 96 12/20/17 11:32 12/20/17 11:32 12/20/17 11:32 12/20/17 11:32 12/20/17 11:32 General appearance: Present: cooperative, A&O X 3, pleasant, no acute distress, answers questions appropriately - Head Head exam: Present: atraumatic, normocephalic - Eye Eye exam: Present: PERRL, conjuntiva pink, sclera anicteric Pupils: Present: PERRL - Neck Neck exam general surgery: Present: supple, trachea midline. Absent: lymphadenopathy - Respiratory Respiratory exam: Present: CTAB. Absent: accessory muscle use, rales, rhonchi, wheezes - Cardiovascular Cardiovascular exam: Present: RRR, +S1, +S2. Absent: diastolic murmur, gallop, rubs, systolic murmur - GI/Abdominal GI/Abdominal exam: Present: normal bowel sounds, soft, no peritoneal signs. Absent: distended, tenderness - Extremities Exam Extremities exam: Present: warm, radial pulses palpable and symmetrical. Absent : calf tenderness, cyanotic, pedal edema - Neurological Exam Neurological exam: Present: CN II-XII intact, oriented X3, no focal deficits. Absent: pronater drift, facial droop, speech deficit - Skin Skin exam: Present: dry, intact, warm. Absent: rash Internal Medicine: Result - Labs CBC & Chem 7: 12/20/17 05:26 12/20/17 05:26 Labs: Short CBC 12/20/17 Range/Units 05:26 WBC 10.2 (4.3-11.1) K/mcL Hgb 14.4 D (11.5-15.4) g/dL Hct 40.7 (35.3-44.9) % Plt Count 264 (140-400) K/mcL Neutrophils # 5.7 (1.6-8.9) K/mcL BMP 12/20/17 05:26 Sodium 139 Potassium 2.8 L Chloride 104 Carbon Dioxide 28 BUN 11 Creatinine 0.76 Glucose 102 Calcium 9.9 - ABG Interpretation ABG results: PT/INR, D-dimer PT 13.0 Seconds (9.4-12.1) H 12/19/17 04:58 D-Dimer < 215 ng/mLFEU (0-500) 12/18/17 10:58 - Impressions Impressions Thyroid Ultrasound 12/19/17 15:00 IMPRESSION: Bilateral thyroid nodules. Dominant nodule to the right thyroid lobe measuring maximally 2.4 cm meets criteria for fine-needle aspiration and this is recommended. Other nodules are amenable to continued follow-up and measure less than 1 cm in size. D/ / 12/19/2017 18:17:13 Marcelo Miramontes MD / Alejandra Huang Interpreting Provider: Marcelo Miramontes MD - VTE Documentation of Mechanical Device: Graduated compression elastic hosiery Consult Discharge Plan - Plan Referrals: NONE,PCP [Primary Care Provider] -
[2017-12-20] MEDS: hydrOXYzine pamoate 25 MG CAPSULE PO PRN (20:09)
[2017-12-20] MEDS: Melatonin 3 MG TABLET PO SCH (20:09)
[2017-12-20] MEDS ORDERED: Pantoprazole 40 MG VIAL IVP ONE (20:24)
[2017-12-20 20:50] LABS: Thyroid Stimulating Hormone 0.788 mcIU/mL (0.340-5.600)
[2017-12-20 21:42] LABS: Potassium,Urine 11.9 mEq/L; Sodium, Urine 81.5 mEq/L
[2017-12-20] MEDS ORDERED: Potassium Chloride Elixir 20 MEQ/15 ML UDC PO ONE (22:00)
[2017-12-21 10:43] LABS: BUN/Creatinine Ratio 16 (6-26); Blood Urea Nitrogen 17 mg/dL (8-23); Calcium 10.8 mg/dL (8.6-10.3); Carbon Dioxide 29 mEq/L (23-29); Chloride 102 mEq/L (98-107); Glucose 80 mg/dL (70-105); Osmolality,Calculated 285 (280-300); Potassium 4.2 mEq/L (3.5-5.1); Sodium 137 mEq/L (136-145); Troponin I < 0.03 ng/mL (< 0.04); eGFR For African Americans > 60 (> 60); eGFR For Non-African Americans 54 (> 60)
[2017-12-21] MEDS: hydrOXYzine pamoate 25 MG CAPSULE PO PRN (15:10)
--- NOTE | 2017-12-21 15:14 | Discharge Summary ---
- NOTES TO OUTPATIENT PROVIDER Notes to Outpatient Provider: Pt was admitted for palpitations, chest tightness , headache, left arm tingling. Pt was found to have a thyroid nodule (right lobe , 2.4cm) that will need to be biopsied. Initially TSH was low, returned to normal prior to discharge. Pt was found to be hypokalemic and had potassium supplementation twice during visit, unclear etiology, pt is on HCTZ combo. Pt is aware that she needs to follow up with PCP and we are trying to get a referral to Endocrinology, all records were faxed. I suspect that pt's symptoms are more related to anxiety, pt agrees. She has been started on Hydroxyzine and again, will need follow up for medication adjustments and changes. Orders not resulted at time of discharge: Pending orders 12/20/17 US biopsy thyroid [US] Routine Date of Encounter: 12/21/17 Time of Encounter: 13:25 - Discharge Diagnosis (1) Hypokalemia Priority: Secondary Status: Resolved Assessment and Plan: Resolved with IV and po supplementation. (2) Hyperthyroidism Priority: Secondary Status: Acute Assessment and Plan: TSH has returned to normal Metoprolol stopped, Propranolol started due to decrease in pulse from 90s to 60s. Pt will need to follow up with PCP and endocrinology for assessment of thyroid nodules. (3) Hypertension Priority: Secondary Status: Chronic Assessment and Plan: Improved, pt on Prinzide and propranolol. Continue at home. Qualifiers: Hypertension type: essential hypertension Qualified Code(s): I10 - Essential (primary) hypertension (4) Dysphagia Priority: Secondary Status: Acute Assessment and Plan: Resolved. Qualifiers: Dysphagia type: unspecified Qualified Code(s): R13.10 - Dysphagia, unspecified (5) Thyroid nodule Priority: Secondary Status: Acute Assessment and Plan: Plan as above. (6) Anxiety Priority: Secondary Status: Chronic Assessment and Plan: Pt reports worsening symptoms when she has anxiety. Most likely anxiety is the cause of a lot of her symptoms. Will send pt home with small amount of Hydroxyzine Follow up with PCP. Hospital course: Ms. Urias is a 62 year old female with past medical history of anxiety, hypertension. Patient admitted for more left arm tingling, palpitations, chest heaviness. Patient was found to have a mildly decreased TSH, T3-T4 were within normal limits. Patient reported dysphasia thyroid ultrasound revealed multiple thyroid nodules, right lobe 2.4 cm, will need fine-needle aspiration after discharge. TSH eventually returned to normal. Patient with hypokalemia, unclear etiology. Patient was supplemented with K rider and by mouth and levels returned to normal limits. I believe the patient's symptoms are exacerbated by anxiety. He reports that in the past she has been on anxiolytic medications and stopped taking them about 20 years ago. He will be sent home with a prescription for hydroxyzine 25 mg by mouth 3 times a day. Patient also be sent home with a prescription for propanolol, patient was tachycardic, hypertensive, attended beta celine to relieve symptoms of what we thought was hyperthyroidism. BP and pulse have been stable and pt reports that she feels less "panicky". We have started the process for a referral to endocrinology for evaluation of thyroid nodule, as well as getting her a new PCP. Pt is stable and appropriate for discharge. Discharge discussed with: patient, family, nurse - Time Spent with Patient Total time spent providing and/or coordinating discharge services: Less than 30 minutes - Discharge Medications Prescriptions: hydrOXYzine pamoate [HydrOXYzine Pamoate] 25 mg PO BID PRN #10 capsule PRN Reason: Anxiety Propranolol [Inderal] 10 mg PO BID #60 tablet Home Medications: Lisinopril-HCTZ 10-12.5 [Prinzide 10-12.5] 1 each PO DAILY 12/18/17 [History] Naproxen Sodium [Aleve] 220 mg PO DAILY 12/18/17 [History] Propranolol [Inderal] 10 mg PO BID #60 tablet 12/21/17 [Rx] hydrOXYzine pamoate [HydrOXYzine Pamoate] 25 mg PO BID PRN #10 capsule 12/21/17 [Rx] Allergies/Adverse Reactions: 3 Allergy/AdvReac Type Severity Reaction Status Date / Time No Known Allergies Allergy Verified 08/17/16 11:12 Date of admission: 12/18/17 13:47 Primary care physician: PCP NONE Consults: 12/18/17 16:58 Consult to Physician [CONS] Routine Consulting Provider: Darrell Sanderson Reason for Consult: hypokalemia Time Notified: 16:59 Call Completed: Yes 12/20/17 08:40 Consult to Speech Therapy [CONS] Routine Comment: Evaluate, develop and implement POC Reason for Consult: Dysphagia, feeling like food is stuck in throat Time Notified: 08:41 Call Completed: No Discharging clinician: Susie Doty Anticipated date of discharge: 12/21/17 - Constitutional Vitals: Temp Pulse Resp BP Pulse Ox 98.2 F 64 22 104/69 98 12/21/17 11:34 12/21/17 11:34 12/21/17 11:34 12/21/17 11:34 12/21/17 11:34 General appearance: Present: cooperative, A&O X 3, pleasant, no acute distress, answers questions appropriately - Head Head exam: Present: atraumatic, normal inspection, normocephalic - Eye Eye exam: Present: normal appearance, conjuntiva pink, sclera anicteric - Neck Neck exam general surgery: Present: supple, trachea midline. Absent: lymphadenopathy, tenderness, thyromegaly - Respiratory Respiratory exam: Present: CTAB. Absent: accessory muscle use, rales, respiratory distress, rhonchi, wheezes - Cardiovascular Cardiovascular exam: Present: RRR, +S1, +S2. Absent: diastolic murmur, gallop, rubs, systolic murmur - GI/Abdominal GI/Abdominal exam: Present: normal bowel sounds, soft. Absent: distended, hepatomegaly, tenderness - Extremities Exam Extremities exam: Present: normal capillary refill, normal inspection, warm, radial pulses palpable and symmetrical. Absent: calf tenderness, cyanotic, pedal edema, tenderness - Neurological Exam Neurological exam: Present: alert, oriented X3, no focal deficits. Absent: facial droop, speech deficit - Skin Skin exam: Present: dry, intact, normal color, warm. Absent: rash - Patient Status Disposition: Home, Self-Care Condition: Good Functional capacity at discharge: independent ambulation Overall status at discharge: patient is back to baseline - Discharge Instructions Follow Up With: Shanel Palm DO [Resident] - 02/05/18 3:30 pm (You will be receiving a new patient packet. Please fill out the packet and bring it with you to your appointment. Please cancel if you are unable for any reason to keep this appointment. Bring Photo ID, insurance card, and any medications you are currently taking. Thank you!!) Additional Instructions: Follow up with your new PCP as scheduled. We are working on a referral to endocrinology, they will call you. return to the ER as needed for any other problems or concerns, or if your symptoms return or worsen. Take your new medications as directed and resume your other medications. Return to your normal diet and activities as tolerated. - Diet and Activity Activity: increase activity as tolerated Diet: advance to your usual diet - VTE Documentation of Mechanical Device: Graduated compression elastic hosiery
[2017-12-21 15:24] VITALS: BP 156/97
--- NOTE | 2017-12-21 15:54 | Electrocardiograph Report ---
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
== END 2017-12-21 16:26 | disposition home or self-care (01) ==
LOC: EMEROO 10:20 → 3BNU 10:20
PROVIDERS: ADMIT Internal Medicine; ATTEND Internal Medicine

== ENCOUNTER 2019-07-07 01:25 | Inpatient (IN) ==
[2019-07-07] MEDS ORDERED: Aspirin 81 MG TAB.CHEW PO ONE (01:32)
[2019-07-07 01:52] LABS: Basophils # 0.1 K/mcL (0.0-0.2); Basophils % 0.8 %; Eosinophils # 0.2 K/mcL (0.0-0.6); Eosinophils % 1.6 %; Hematocrit 43.5 % (35.3-44.9); Hemoglobin 15.2 g/dL (11.5-15.4); Immature Granulocytes % 0.2 % (0-4); Lymphocytes # 4.7 K/mcL (0.6-4.6); Lymphocytes % 39.3 %; Mean Corpuscular HGB Conc 34.9 g/dL (31.6-35.5); Mean Corpuscular Hemoglobin 29.4 pg (28.0-33.3); Mean Corpuscular Volume 84.1 fL (83.0-100.0); Mean Platelet Volume 8.9 fL (9.4-12.4); Monocytes # 0.9 K/mcL (0.0-1.3); Monocytes % 7.7 %; Neutrophils # 6.1 K/mcL (1.6-8.9); Platelet Count 367 K/mcL (140-400); Red Blood Count 5.17 M/mcL (3.82-4.97); Red Cell Distribution Width 13.2 % (11.5-14.5); Segmented Neutrophils % 50.4 %
[2019-07-07 02:07] LABS: INR 1.1; Prothrombin Time 12.4 Seconds (9.4-12.1)
[2019-07-07 02:10] LABS: Activated Partial Thrombo Time 32.6 Seconds (26.0-36.0)
[2019-07-07 02:13] LABS: BUN/Creatinine Ratio 15 (6-26); Blood Urea Nitrogen 13 mg/dL (8-23); Calcium 9.5 mg/dL (8.6-10.3); Carbon Dioxide 28 mEq/L (23-29); Chloride 103 mEq/L (98-107); Glucose 113 mg/dL (70-105); Osmolality,Calculated 289 (280-300); Potassium 2.7 mEq/L (3.5-5.1); Sodium 139 mEq/L (136-145); eGFR For African Americans > 60 (> 60); eGFR For Non-African Americans > 60 (> 60)
[2019-07-07 02:19] LABS: Troponin I 0.16 ng/mL (< 0.04)
[2019-07-07] MEDS ORDERED: *HR* Heparin 5,000 UNIT/ML VIAL IVP ONE (02:21)
[2019-07-07] MEDS ORDERED: *HR* Heparin 5,000 UNIT/ML VIAL IVP PRN ×2 (02:21)
[2019-07-07] MEDS ORDERED: Heparin 25,000 UNIT/250 ML D5W 25,000 UNIT/250 ML IV.SOLN IVC SCH (02:30)
[2019-07-07] MEDS ORDERED: 0.9 % Sodium Chloride 1,000 ML ONE (02:35)
[2019-07-07] MEDS ORDERED: Nitroglycerin 0.4 MG TAB.SUBL SL PRN (03:56)
[2019-07-07] MEDS ORDERED: Ipratropium/Albuterol Neb 3 ML IH PRN (04:03)
[2019-07-07 04:09] LABS: Magnesium 1.8 mg/dL (1.6-2.6)
[2019-07-07] MEDS: Tiotropium 18 MCG inhalation IH SCH (08:02)
[2019-07-07] MEDS ORDERED: Propranolol LA (24 HR) 60 MG CAP.SA.24H PO SCH (09:00)
[2019-07-07] MEDS ORDERED: Lisinopril 20 MG TABLET PO SCH (09:00)
[2019-07-07 09:15] LABS: Troponin I 0.41 ng/mL (< 0.04)
[2019-07-07] MEDS: Aspirin Enteric Coated 81 MG Tablet PO SCH (09:42)
[2019-07-07 13:16] LABS: BUN/Creatinine Ratio 13 (6-26); Blood Urea Nitrogen 10 mg/dL (8-23); Calcium 9.1 mg/dL (8.6-10.3); Carbon Dioxide 25 mEq/L (23-29); Chloride 109 mEq/L (98-107); Glucose 106 mg/dL (70-105); Osmolality,Calculated 289 (280-300); Potassium 3.4 mEq/L (3.5-5.1); Sodium 140 mEq/L (136-145); eGFR For African Americans > 60 (> 60); eGFR For Non-African Americans > 60 (> 60)
[2019-07-07] MEDS ORDERED: Iron Sucrose Complex 200 MG in 0.9 % Sodium Chloride 100 ML IVPB SCH (14:00)
[2019-07-07 17:05] LABS: Thyroid Stimulating Hormone 0.736 mcIU/mL (0.340-5.600)
[2019-07-07] MEDS ORDERED: Potassium Chloride Elixir 20 MEQ/15 ML UDC PO ONE (17:27)
[2019-07-08 02:01] LABS: Hematocrit 44.5 % (35.3-44.9); Hemoglobin 15.1 g/dL (11.5-15.4); Mean Corpuscular HGB Conc 33.9 g/dL (31.6-35.5); Mean Corpuscular Hemoglobin 29.2 pg (28.0-33.3); Mean Corpuscular Volume 85.9 fL (83.0-100.0); Mean Platelet Volume 9.2 fL (9.4-12.4); Platelet Count 343 K/mcL (140-400); Red Blood Count 5.18 M/mcL (3.82-4.97); Red Cell Distribution Width 13.2 % (11.5-14.5); White Blood Count 10.7 K/mcL (4.3-11.1)
[2019-07-08 02:22] LABS: BUN/Creatinine Ratio 11 (6-26); Blood Urea Nitrogen 8 mg/dL (8-23); Calcium 9.8 mg/dL (8.6-10.3); Carbon Dioxide 23 mEq/L (23-29); Chloride 106 mEq/L (98-107); Glucose 111 mg/dL (70-105); Osmolality,Calculated 289 (280-300); Potassium 3.5 mEq/L (3.5-5.1); Sodium 140 mEq/L (136-145); eGFR For African Americans > 60 (> 60); eGFR For Non-African Americans > 60 (> 60)
[2019-07-08] MEDS: Aspirin Enteric Coated 81 MG Tablet PO SCH (09:28)
[2019-07-08] MEDS: Tiotropium 18 MCG inhalation IH SCH (10:37)
[2019-07-08] MEDS ORDERED: Heparin 1,000 UNITS/500 mL 500 ML ONE (14:27)
[2019-07-08] MEDS ORDERED: Nitroglycerin 1,000 MCG/10 ML VIAL IV ONE (14:27)
[2019-07-08] MEDS ORDERED: ISOVUE-370 200 ML INFUS..BTL ONE (14:27)
[2019-07-08] MEDS ORDERED: 0.9 % Sodium Chloride 1,000 ML ONE (14:27)
[2019-07-08] MEDS ORDERED: *HR* Heparin 10,000 UNIT/10 ML VIAL ONE (14:27)
[2019-07-08] MEDS ORDERED: hydrOXYzine pamoate 25 MG CAPSULE PO PRN (14:29)
[2019-07-08] MEDS ORDERED: *HR* Midazolam HCl 2 MG/2 ML VIAL ONE (14:37)
[2019-07-08] MEDS ORDERED: *HR* FentaNYL (PF) 100 MCG/2 ML VIAL ONE (14:38)
[2019-07-08] MEDS ORDERED: *HR* Ticagrelor 90 MG TABLET ONE (15:16)
[2019-07-08] MEDS ORDERED: carvediloL 6.25 MG TABLET PO SCH (17:00)
[2019-07-08] MEDS: *HR* Ticagrelor 90 MG TABLET PO SCH (22:32)
[2019-07-08] MEDS ORDERED: *HR* Promethazine 25 MG/ML VIAL IVP ONE (22:52)
[2019-07-09 06:44] LABS: Hematocrit 48.7 % (35.3-44.9); Mean Corpuscular HGB Conc 34.7 g/dL (31.6-35.5); Mean Corpuscular Hemoglobin 28.9 pg (28.0-33.3); Mean Corpuscular Volume 83.2 fL (83.0-100.0); Mean Platelet Volume 9.1 fL (9.4-12.4); Platelet Count 442 K/mcL (140-400); Red Blood Count 5.85 M/mcL (3.82-4.97); Red Cell Distribution Width 13.3 % (11.5-14.5); White Blood Count 12.6 K/mcL (4.3-11.1)
[2019-07-09 06:46] LABS: Hemoglobin 16.9 g/dL (11.5-15.4)
[2019-07-09 07:06] LABS: BUN/Creatinine Ratio 16 (6-26); Blood Urea Nitrogen 16 mg/dL (8-23); Calcium 10.2 mg/dL (8.6-10.3); Carbon Dioxide 26 mEq/L (23-29); Chloride 102 mEq/L (98-107); Glucose 132 mg/dL (70-105); Osmolality,Calculated 299 (280-300); Potassium 3.2 mEq/L (3.5-5.1); Sodium 143 mEq/L (136-145); eGFR For African Americans > 60 (> 60); eGFR For Non-African Americans 58 (> 60)
[2019-07-09 07:28] VITALS: BP 108/92
[2019-07-09] MEDS: Tiotropium 18 MCG inhalation IH SCH (08:29)
[2019-07-09] MEDS ORDERED: *HR* Metoprolol 5 MG/5 ML VIAL IVP ONE (08:44)
[2019-07-09] MEDS ORDERED: Ondansetron 4 MG/2 ML VIAL IVP PRN (08:44)
[2019-07-09] MEDS ORDERED: Aspirin 81 MG TAB.CHEW PO SCH (09:00)
[2019-07-09] MEDS: *HR* Ticagrelor 90 MG TABLET PO SCH (09:26)
[2019-07-09] MEDS ORDERED: Potassium Chloride 20 MEQ, Lidocaine 1% 2 ML in 0.9 % Sodium Chloride 250 ML IVPB ONE (10:53)
[2019-07-09] MEDS ORDERED: Potassium Chloride Elixir 20 MEQ/15 ML UDC PO ONE (13:36)
== END 2019-07-09 15:09 | disposition home or self-care (01) | DRG 174 ==
LOC: 2NENU 01:25 → EMEROOARM 01:25 → SUATTDRO 03:09 → 2NENU 04:01
PROVIDERS: ADMIT Internal Medicine; ATTEND Family Medicine